=== PATIENT | female | born 1990 | race Caucasian/White ===

== ENCOUNTER 2020-05-10 20:04 | Emergency (ER) | payer MEDICAID ==
[~2020-05-10] VITALS: Ht 170.2 cm; Wt 109.3 kg
[2020-05-10] MEDS ORDERED: EQUETRO100 MG PO (20:14)
[2020-05-10] MEDS ORDERED: ATENOLOL 25 MG25 M1 PO ×2 (20:15)
[2020-05-10] MEDS ORDERED: TAPAZOLE5 MG PO (20:15)
[2020-05-10] MEDS ORDERED: APAP W/CODEINE1 TA2 PO (20:34)
[2020-05-10] MEDS ORDERED: PENICILLIN V P500 MG PO (20:34)
[2020-05-10] MEDS ORDERED: PERIDEX 0.12%473 M1 SWISH&SPIT (20:34)
[2020-05-10 20:41] VITALS: BP 134/59
== END 2020-05-10 20:41 | disposition home or self-care (01) ==
LOC: M.ERS 20:04
DX: K00.6 Disturbances in tooth eruption (principal); K04.7 Periapical abscess without sinus; M41.9 Scoliosis, unspecified